=== PATIENT | male | born 1985 | race American Indian/Alaskan Native ===

== ENCOUNTER 2016-12-03 21:58 | Emergency (ER) | payer MEDICAID ==
[2016-12-03 23:09] LABS: Basophils % (Auto) 0.4 % (0.0-1.8); Eosinophils % (Auto) 1.6 % (0.0-4.3); Hematocrit 42.9 % (35.5-45.6); Hemoglobin 13.9 gm/dl (11.8-15.2); Mean Corpuscular HGB Conc 33 % (32-34); Mean Corpuscular Hemoglobin 30 pg (28-32); Mean Corpuscular Volume 92 fl (84-94); Platelet Count 252 K/mm3 (140-440); Red Blood Count 4.65 M/mm3 (3.65-5.03); White Blood Count 7.1 K/mm3 (4.5-11.0)
[2016-12-03 23:33] LABS: Anion Gap 21 mmol/L; BUN/Creatinine Ratio 11.53; Blood Urea Nitrogen 15 mg/dL (9-20); Calcium 9.8 mg/dL (8.4-10.2); Carbon Dioxide 26 mmol/L (22-30); Chloride 99.9 mmol/L (98-107); Glucose 57 mg/dL (75-100); Potassium 3.9 mmol/L (3.6-5.0); Sodium 143 mmol/L (137-145)
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
[2016-12-04 16:43] VITALS: BP 128/72
== END 2016-12-04 15:00 | disposition home or self-care (01) ==
LOC: EEVIPCON 21:58 → ED 21:58
DX: F20.0 Paranoid schizophrenia (principal); Z59.0 Homelessness
CPT/HCPCS: 36415; 80048; 85025; 99284; G0480; 80320